=== PATIENT | female | born 1950 | race Two or more races ===

== ENCOUNTER → 2017-04-22 | Outpatient (CLI) | payer OTHER, MEDICAID ==
--- NOTE | 2017-04-22 10:29 | RAD ---
Bilateral duplex carotid sonography History: CVA. Duplex sonography of the cervical portion of both carotid arteries was performed. Findings: Right side: Peak systolic flow velocity of the CCA is 83 cm/sec. Peak systolic flow velocity of the ICA is 80 cm/sec. The ICA/CCA ratio is 0.96. Peak end diastolic flow velocity of the ICA is 28 cm/sec. The peak systolic velocity of the ECA is 76 cm/sec. Mild atherosclerotic plaquing is seen at the carotid bulb. Left side: Peak systolic flow velocity of the CCA is 83 cm/sec. Peak systolic flow velocity of the ICA is 83 cm/sec. The ICA/CCA ratio is 1.0. Peak end diastolic flow velocity of the ICA is 29 cm/sec. Peak systolic flow velocity of the ECA is 77 cm/sec. Mild atherosclerotic plaquing is seen at the carotid bulb. Vertebral arteries: Bilateral vertebral arteries demonstrate antegrade flow. Impression: 1. No hemodynamically significant internal carotid artery stenosis identified. Note: Stenosis calculations for Doppler studies are derived from validated velocity criteria which are known to correlate with NASCET methodology of determining stenosis.
--- NOTE | 2017-04-23 09:38 | CARD ---
APPROVED REPORT EXAM: Two-dimensional and M-mode echocardiogram with Doppler, color Doppler with contrast. Other Information Quality : Average Rhythm : NSR INDICATION CVA/TIA Echo Enhancing Agent Indication: Rule Out Septal Defect Agent/Amount Used: Agitated Saline 8mL 2D DIMENSIONS RVDd3.1 (2.9-3.5cm)Left Atrium(2D)3.6 (1.6-4.0cm) IVSd0.9 (0.7-1.1cm)Aortic Root(2D)3.0 (2.0-3.7cm) LVDd3.8 (3.9-5.9cm)LVOT Diameter2.1 (1.8-2.4cm) PWd0.9 (0.7-1.1cm)LVDs2.7 (2.5-4.0cm) FS (%) 28.1 %SV33.5 ml LVEF(%)55.1 (>50%) Aortic Valve AoV Peak Adin.113.1cm/sAoV VTI23.0cm AO Peak GR.5.1mmHgLVOT Peak Adin.88.0cm/s LVOT VTI 24.25cmAO Mean GR.3mmHg LEBRON (VMAX)2.69ga9TRN (VTI)3.67cm2 Mitral Valve MV E Mtcolhwk83.2cm/sMV DECEL DXKP232vo MV A Lsajpeoi368.4cm/sMV HMW84mg E/A Ratio0.6MV A Imffkugv127hu MVA (PHT)3.36cm2 TDI E/Lateral E'8.5E/Medial E'12.3 Pulmonary Valve PV Peak Dsavkxdh27.5cm/sPV Peak Grad.3mmHg RVOT VTI12.3cm Tricuspid Valve TR P. Aanjwgpw428ay/sRAP TMHUZXKZ0tnLm TR Peak Gr.69uhUbCBVJ08vzYb LEFT VENTRICLE The left ventricle is normal size. There is normal left ventricular wall thickness. Left ventricle sy stolic function is normal. The Ejection Fraction is 50-55%. There is normal LV segmental wall motion. Tissue Doppler imaging reveals mild left ventricular diastolic dysfunction. There is no ventricular septal defect visualized. RIGHT VENTRICLE The right ventricle is normal size. The right ventricular systolic function is normal. ATRIA The left atrium size is normal. The right atrium size is normal. The interatrial septum is intact wit h no evidence for an atrial septal defect or patent foramen ovale as noted on 2-D or Doppler imaging. Injection of bubbles documented no interatrial shunt. AORTIC VALVE The aortic valve is normal in structure and function. The aortic valve is trileaflet. Doppler and Col or Flow revealed no significant aortic regurgitation. There is no significant aortic valvular stenosi s. MITRAL VALVE The mitral valve leaflets are thickened. There is no mitral valve stenosis. Doppler and Color Flow re vealed trace to mild mitral regurgitation. TRICUSPID VALVE The tricuspid valve is normal in structure and function. Doppler and Color Flow revealed trace tricus pid regurgitation. The PA pressure was estimated at 22 mmHg. There is no tricuspid valve stenosis. PULMONIC VALVE The pulmonic valve is not well visualized. Doppler and Color Flow revealed no pulmonic valvular regur gitation. There is no pulmonic valvular stenosis. GREAT VESSELS The aortic root is normal in size. Normal pulmonary venous flow (Doppler). The IVC is normal in size and collapses >50% with inspiration. PERICARDIAL EFFUSION There is no evidence of significant pericardial effusion. Critical Notification Critical Value: No <Conclusion> Left ventricle systolic function is normal. The Ejection Fraction is 50-55%. There is normal LV segmental wall motion. Tissue Doppler imaging reveals mild left ventricular diastolic dysfunction. The interatrial septum is intact with no evidence for an atrial septal defect or patent foramen ovale as noted on 2-D or Doppler imaging. Injection of bubbles documented no interatrial shunt. Doppler and Color Flow revealed trace to mild mitral regurgitation.
== END | disposition home or self-care (01) ==
LOC: US 08:43
PROVIDERS: ATTEND Psychiatry & Neurology Neurology
DX: I63.9 Cerebral infarction, unspecified (principal); I65.23 Occlusion and stenosis of bilateral carotid arteries
CPT/HCPCS: 93880; C8929

== ENCOUNTER 2017-08-24 13:25 | Emergency (ER) | payer OTHER ==
[~2017-08-24] VITALS: Ht 152.4 cm; Wt 61.2 kg
[2017-08-24 14:05] LABS: BILIRUBIN,URINE NEGATIVE (NEG); GLUCOSE,URINE >=1000 mg/dL (NEG); NITRITE,URINE NEGATIVE (NEG); PROTEIN,URINE NEGATIVE (NEG-TRACE); UROBILINOGEN,URINE 0.2 mg/dL (0.2 mg/dL)
[2017-08-24] MEDS: IV NORMAL SALINE 1000ML BAG 1,000 ML IV ONE (14:05)
[2017-08-24 14:12] LABS: BACTERIA,URINE FEW /HPF (0-FEW); RBC,URINE 0 /HPF (0-2); SQUAMOUS EPITHELIAL CELL,UR OCC /LPF
[2017-08-24 14:30] LABS: BASO % 0 % (0-3); EOS % 1 % (0-3); HEMATOCRIT 37.9 % (36.0-47.0); HEMOGLOBIN 13.1 g/dL (12.0-15.5); LYMPH # 2.5 x10^3/uL (1.0-4.8); LYMPH % 38 % (24-48); MEAN CORPUSCULAR HEMOGLOBIN 32 pg (25-35); MEAN CORPUSCULAR HGB CONC 35 g/dL (31-37); MEAN CORPUSCULAR VOLUME 91 fL (79-100); MONO % 10 % (0-9); NEUT % 50 % (31-73); PLATELET COUNT 218 x10^3/uL (140-400); RED BLOOD COUNT 4.15 x10^6/uL (3.50-5.40); RED CELL DISTRIBUTION WIDTH 13.3 % (11.5-14.5); WHITE BLOOD COUNT 6.5 x10^3/uL (4.0-11.0)
[2017-08-24] MEDS ORDERED: METF500T4 PO (14:44)
[2017-08-24 14:58] LABS: CALCIUM 8.6 mg/dL (8.5-10.1); CREATININE 0.9 mg/dL (0.6-1.0); GFR 62.6; POTASSIUM 3.9 mmol/L (3.5-5.1)
[2017-08-24 15:03] LABS: ALBUMIN 3.3 g/dL (3.4-5.0); TOTAL BILIRUBIN 0.5 mg/dL (0.2-1.0); TOTAL PROTEIN 6.7 g/dL (6.4-8.2)
[2017-08-24 15:04] VITALS: BP 113/63
--- NOTE | 2017-08-24 15:31 | PHYS DOC ---
Past Medical History Past Medical History: Diabetes-Type II Past Surgical History: No Surgical History Alcohol Use: None Drug Use: None Adult General Chief Complaint Chief Complaint: HYPERGLYCEMIA HPI HPI Patient is a 66 year old female who presents with elevated blood sugar. Pt is known diabetic who stopped taking all of her diabetic medications because she was experiencing diarrhea. She hasn't been on metformin or insulin for weeks, and she was placed on medication for the diarrhea, and it has only slightly improved. She denies other symptoms such as abd pain, n/v/chest pain or SOB. No fevers. Pt see Dr. Parry. She knew her BS was high because she checks it daily. Review of Systems Review of Systems Constitutional: Denies fever or chills [] Eyes: Denies change in visual acuity, redness, or eye pain [] HENT: Denies nasal congestion or sore throat [] Respiratory: Denies cough or shortness of breath [] Cardiovascular: No additional information not addressed in HPI [] GI: Denies abdominal pain, nausea, vomiting, bloody stools or diarrhea [] : Denies dysuria or hematuria [] Musculoskeletal: Denies back pain or joint pain [] Integument: Denies rash or skin lesions [] Neurologic: Denies headache, focal weakness or sensory changes [] Endocrine: mild polyuria/polydipsia Current Medications Current Medications Current Medications Medications (Trade) Dose Ordered Sig/Natan Start Time Stop Time Status Last Admin Dose Admin Sodium Chloride 1,000 ml @ 1,000 mls/hr 1X ONCE 08/24/17 14:00 08/24/17 14:59 DC 08/24/17 14:05 1,000 MLS/HR Allergies Allergies Allergies Coded Allergies Type Severity Reaction Last Updated Verified No Known Drug Allergies 08/24/17 No Physical Exam Physical Exam Constitutional: Well developed, well nourished, no acute distress, non-toxic appearance. [] HENT: Normocephalic, atraumatic, bilateral external ears normal, oropharynx moist, no oral exudates, nose normal. [] Eyes: PERRLA, EOMI, conjunctiva normal, no discharge. [] Neck: Normal range of motion, no tenderness, supple, no stridor. [] Cardiovascular:Heart rate regular rhythm, no murmur [] Lungs & Thorax: Bilateral breath sounds clear to auscultation [] Abdomen: Bowel sounds normal, soft, no tenderness, no masses, no pulsatile masses. [] Skin: Warm, dry, no erythema, no rash. [] Back: No tenderness, no CVA tenderness. [] Extremities: No tenderness, no cyanosis, no clubbing, ROM intact, no edema. [] Neurologic: Alert and oriented X 3, normal motor function, normal sensory function, no focal deficits noted. [] Psychologic: Affect normal, judgement normal, mood normal. [] Current Patient Data Vital Signs Vital Signs Date Time Temp Pulse Resp B/P (MAP) Pulse Ox O2 Delivery O2 Flow Rate FiO2 08/24/17 15:04 70 113/63 (80) 97 Room Air 08/24/17 14:04 18 08/24/17 13:30 98.5 98.5 Lab Values Laboratory Tests Test 08/24/17 13:35 08/24/17 13:36 08/24/17 14:20 Glucose (Fingerstick) 322 mg/dL (70-99) H Urine Color Yellow Urine Clarity Clear Urine pH 5.0 Urine Specific [place] >=1.030 Urine Protein Negative mg/dL (NEG-TRACE) Urine Glucose (UA) >=1000 mg/dL (NEG) Urine Ketones (Stick) Negative mg/dL (NEG) Urine Blood Negative (NEG) Urine Nitrite Negative (NEG) Urine Bilirubin Negative (NEG) Urine Urobilinogen Dipstick 0.2 mg/dL (0.2 mg/dL) Urine Leukocyte Esterase Small (NEG) Urine RBC 0 /HPF (0-2) Urine WBC 5-10 /HPF (0-4) Urine Squamous Epithelial Cells Occ /LPF Urine Bacteria Few /HPF (0-FEW) Urine Mucus Slight /LPF White Blood Count 6.5 x10^3/uL (4.0-11.0) Red Blood Count 4.15 x10^6/uL (3.50-5.40) Hemoglobin 13.1 g/dL (12.0-15.5) Hematocrit 37.9 % (36.0-47.0) Mean Corpuscular Volume 91 fL (79-100) Mean Corpuscular Hemoglobin 32 pg (25-35) Mean Corpuscular Hemoglobin Concent 35 g/dL (31-37) Red Cell Distribution Width 13.3 % (11.5-14.5) Platelet Count 218 x10^3/uL (140-400) Neutrophils (%) (Auto) 50 % (31-73) Lymphocytes (%) (Auto) 38 % (24-48) Monocytes (%) (Auto) 10 % (0-9) H Eosinophils (%) (Auto) 1 % (0-3) Basophils (%) (Auto) 0 % (0-3) Neutrophils # (Auto) 3.3 x10^3uL (1.8-7.7) Lymphocytes # (Auto) 2.5 x10^3/uL (1.0-4.8) Monocytes # (Auto) 0.7 x10^3/uL (0.0-1.1) Eosinophils # (Auto) 0.1 x10^3/uL (0.0-0.7) Basophils # (Auto) 0.0 x10^3/uL (0.0-0.2) Sodium Level 134 mmol/L (136-145) L Potassium Level 3.9 mmol/L (3.5-5.1) Chloride Level 99 mmol/L (98-107) Carbon Dioxide Level 26 mmol/L (21-32) Anion Gap 9 (6-14) Blood Urea Nitrogen 15 mg/dL (7-20) Creatinine 0.9 mg/dL (0.6-1.0) Estimated GFR (Cockcroft-Gault) 62.6 BUN/Creatinine Ratio 17 (6-20) Glucose Level 361 mg/dL (70-99) H Calcium Level 8.6 mg/dL (8.5-10.1) Total Bilirubin 0.5 mg/dL (0.2-1.0) Aspartate Amino Transferase (AST) 15 U/L (15-37) Alanine Aminotransferase (ALT) 23 U/L (14-59) Alkaline Phosphatase 103 U/L (46-116) Total Protein 6.7 g/dL (6.4-8.2) Albumin 3.3 g/dL (3.4-5.0) L Albumin/Globulin Ratio 1.0 (1.0-1.7) Laboratory Tests 08/24/17 14:20 Laboratory Tests 08/24/17 14:20 Microbiology 08/24/17 Urine Culture - Final, Complete 08/24/17 Urine Culture Result 1 (JEAN) - Final, Complete EKG EKG [] Radiology/Procedures Radiology/Procedures [] Course & Med Decision Making Course & Med Decision Making Pertinent Labs and Imaging studies reviewed. (See chart for details) pt given 1 L NS bolus, no acute findings on labs. Pt stable, recommend resuming metformin and f/u with PCP. Pt agreeable and dc'd with RX. Return precautions given. Visit interpreted by pt's adult family member Yuliya Disclaimer Yuliya Disclaimer This electronic medical record was generated, in whole or in part, using a voice recognition dictation system. Departure Departure Impression: Primary Impression: Hyperglycemia Disposition: HOME, SELF-CARE Condition: STABLE Patient Instructions: Hyperglycemia, [id number]-mi-[id number] Scripts Metformin Hcl (METFORMIN HCL) 500 Mg Tablet 500 MG PO BIDWMEALS for ANTI-DIABETIC, #30 TAB 0 Refills Prov: MELINDA CURIEL MD 08/24/17 MELINDA CURIEL MD Aug 24, 2017 15:31
== END 2017-08-24 15:37 | disposition home or self-care (01) ==
LOC: ER 13:25
DX: E11.65 Type 2 diabetes mellitus with hyperglycemia (principal)
CPT/HCPCS: 36415; 80053; 81001; 82962; 85025; 87086; 96360; 99284; J7030

== ENCOUNTER → 2017-12-22 | Day surgery (SDC) | payer OTHER ==
[~2017-12-22] MED LIST: PROPOFOL 40 ML IV
[2017-12-22] MEDS: IV RINGERS,LACTATED 1000ML 1,000 ML IV ×3 (09:42)
== END | disposition home or self-care (01) ==
LOC: ENDOS 09:10
DX: K57.30 Diverticulosis of large intestine without perforation or abscess without bleeding (principal); Z12.11 Encounter for screening for malignant neoplasm of colon (principal); K62.1 Rectal polyp; E78.00 Pure hypercholesterolemia, unspecified; I10 Essential (primary) hypertension; E11.9 Type 2 diabetes mellitus without complications; Z86.39 Personal history of other endocrine, nutritional and metabolic disease
CPT/HCPCS: 45385; 88305; J2704

== ENCOUNTER 2021-09-09 20:00 | Emergency (ER) | payer OTHER, MEDICAID ==
[~2021-09-09] VITALS: Ht 152.4 cm; Wt 61.0 kg
[~2021-09-09 20:00] MED LIST changes: +ASPI-630 PO; +INSU100V13 SQ; +LISI-517 PO; +LOVA40TA2 PO; +METF500T16 PO; +OMEG1CAP38 PO; -PROPOFOL 40 ML IV
[2021-09-09] MEDS ORDERED: BISACODYL 5 MG TABLET.DR. PO STA (22:13)
[2021-09-09] MEDS ORDERED: MAGNESIUM CITRATE 296 ML SOLUTION. PO ONE (22:15)
--- NOTE | 2021-09-09 22:21 | RAD ---
EXAM: AP views of the abdomen in upright and supine positions. CLINICAL INDICATION: Reason: constipation / Spl. Instructions: / History: COMPARISON: None. FINDINGS and IMPRESSION: No abnormal small or large bowel dilatation. Moderate to large volume colonic stool content. No abn ormal soft tissue mass effect. No suspicious calcifications are seen. No free intraperitoneal gas. Electronically signed by: Edvin Terrell MD (09/09/2021 10:19 PM) [facility]
[2021-09-09] MEDS ORDERED: POLY119P4 PO (22:54)
--- NOTE | 2021-09-09 22:55 | PHYS DOC ---
Past Medical History Past Medical History: Diabetes-Type II Past Surgical History: No Surgical History Smoking Status: Never Smoker Alcohol Use: None Drug Use: None General Adult EDM: Chief Complaint: CONSTIPATION HPI: HPI: Patient is a 70 year old female who presents to the ED today complaining of constipation for 5 days. Patient denies any nausea or vomiting. Reports mild intermittent left lower quadrant abdominal pain on pushing her abdomen. She states she did not try anything this time but she had similar problem a week ago and tried [id number] constipation medicines which cleared her bowels. Review of Systems: Review of Systems: Constitutional: Denies fever or chills. [] GI: Reports left lower quadrant abdominal pain with constipation, denies nausea, vomiting, bloody stools or diarrhea. [] : Denies dysuria. [] Musculoskeletal: Denies back pain or joint pain. [] Integument: Denies rash. [] Neurologic: Denies headache, focal weakness or sensory changes. [] [] Psychiatric: Denies depression or anxiety. [] Heart Score: C/O Chest Pain: N/A Risk Factors: Risk Factors: DM, Current or recent (<one month) smoker, HTN, HLP, family history of CAD, obesity. Risk Scores: Score 0 - 3: 2.5% MACE over next 6 weeks - Discharge Home Score 4 - 6: 20.3% MACE over next 6 weeks - Admit for Clinical Observation Score 7 - 10: 72.7% MACE over next 6 weeks - Early Invasive Strategies Current Medications: Current Medications Medications (Trade) Dose Ordered Sig/Natan Start Time Stop Time Status Last Admin Dose Admin Bisacodyl (Dulcolax Tab) 10 mg 1X STAT 09/09/21 22:13 09/09/21 22:17 DC 09/09/21 22:41 10 MG Magnesium Citrate (Citroma) 296 ml 1X ONCE 09/09/21 22:15 09/09/21 22:17 DC 09/09/21 22:41 296 ML Allergies: Allergies: Allergies Coded Allergies Type Severity Reaction Last Updated Verified No Known Drug Allergies 12/22/17 No Physical Exam: PE: Constitutional: Well developed, well nourished, no acute distress, non-toxic appearance. [] Abdomen: Bowel sounds normal, soft, no tenderness, no masses, no pulsatile masses. [] Skin: Warm, dry, no erythema, no rash. [] Back: No tenderness, no CVA tenderness. [] Extremities: No tenderness, no cyanosis, no clubbing, ROM intact, no edema. [] Neurologic: Alert and oriented X 3, normal motor function, normal sensory function, no focal deficits noted. [] Psychologic: Affect normal, judgement normal, mood normal. [] Current Patient Data: Vital Signs: Vital Signs Date Time Temp Pulse Resp B/P (MAP) Pulse Ox O2 Delivery O2 Flow Rate FiO2 09/09/21 21:00 97.9 75 16 144/73 (96) 98 Room Air 97.9 EKG: EKG: [] Radiology/Procedures: Radiology/Procedures: []PROCEDURE: ABDOMEN SUPINE & UPRIGHT EXAM: AP views of the abdomen in upright and supine positions. CLINICAL INDICATION: Reason: constipation / Spl. Instructions: / History: COMPARISON: None. FINDINGS and IMPRESSION: No abnormal small or large bowel dilatation. Moderate to large volume colonic stool content. No abnormal soft tissue mass effect. No suspicious calcifications are seen. No free intraperitoneal gas. Electronically signed by: Edvin Terrell MD (09/09/2021 10:19 PM) [facility] DICTATED and SIGNED BY: EDVIN TERRELL MD DATE: 09/09/21 [id number] 0 Course & Med Decision Making: Course & Med Decision Making Pertinent Labs and Imaging studies reviewed. (See chart for details) This is a 70-year-old female patient presented to the ED today complaining of constipation for 5 days. Acute abdominal series x-rays were done were noted for moderate amount of stool in the colon. Patient was given mag citrate and Dulcolax in the ED. This appears to be a chronic problem on this patient. I spent some time with patient and daughter educated them on how to prevent as well as manage constipation. Dragon Disclaimer: Dragon Disclaimer: This electronic medical record was generated, in whole or in part, using a voice recognition dictation system. Departure Departure Impression: Primary Impression: Constipation Qualified Codes: K59.00 - Constipation, unspecified Disposition: HOME / SELF CARE / HOMELESS Condition: STABLE Referrals: KEVIN QUIROZ MD (PCP) Follow-up this week Patient Instructions: Constipation, Adult, [id number]-[id number] Additional Instructions: You were evaluated for constipation. We highly encourage you to increase your dietary fiber intake, increase your water intake, try and get up and walk more. Please take MiraLAX and docusate sodium every day. Please take magnesium citrate or milk of magnesium anytime you are constipated. Scripts Polyethylene Glycol 3350 (MIRALAX) 119 Gm Powder 17 GM PO DAILY for constipation, #527 GM 0 Refills dissolve in water Prov: NIKOS SINGLETON APRN 09/09/21 NIKOS SINGLETON APRN Sep 09, 2021 22:55
[2021-09-09 23:02] VITALS: BP 136/70
== END 2021-09-09 23:00 | disposition home or self-care (01) ==
LOC: ER 20:00
DX: K59.00 Constipation, unspecified (principal); E11.9 Type 2 diabetes mellitus without complications
CPT/HCPCS: 74021; 99283